=== PATIENT | female | born 1980 ===

== ENCOUNTER → 2019-09-27 | Day surgery (SDC) | payer OTHER ==
[~2019-09-27] MED LIST: LIDOCAINE 1% INJ 20 ML 20 ML VIAL INJ ONE
--- NOTE | 2019-09-27 13:57 | Diagnostic Imaging Report ---
INDICATION: Abnormal outside imaging from [facility] raising the question of inflammatory breast carcinoma. The patient underwent right breast biopsy. No malignancy was identified on biopsy. The patient presents for rebiopsy. COMPARISON: The patient's prior imaging is not available for comparison. Prior reports from diagnostic mammography, ultrasound, and MRI are available for comparison. FINDINGS: The patient reportedly had multifocal abnormalities on prior imaging in the medial and inferior right breast, raising the question of inflammatory breast carcinoma. There is a circumscribed hypoechoic nodule at the 6:30 location 1 cm from the nipple measuring 15 mm x 9 mm. A second circumscribed nodule is seen at the 4 o'clock location 4 cm from the nipple measuring 7 mm x 5 mm x 12 mm. No posterior acoustic shadowing is seen. No abnormal vascularity is present. The findings may represent fibroadenomas. There does appear to be some ductal dilatation in the retroareolar right breast. A fatty lymph node in the right axilla is seen measuring approximately 2 cm. The overlying cortex is thin. No suspicious lymphadenopathy is seen. After discussion with the patient, the patient reports her symptoms have improved. She took approximately half a round of antibiotics and the skin redness previously described has significantly improved. Since no concerning findings are found sonographically, the biopsy procedure was canceled. After discussion with the patient and the patient's physician Dr. Zambrano, we decided the patient should finish her round of antibiotics and return to our Department in 6 weeks for additional followup right breast ultrasound to confirm stability and/or resolution of the findings. The patient should return if any new or concerning findings occur with her breast. IMPRESSION: No concerning findings in the right breast are identified; therefore, the biopsy was canceled. There are two circumscribed nodules, as described at the 6:30 and 4 o'clock locations, which may represent fibroadenomas. The patient will return in 6 weeks for additional followup. ACR BI-RADS Category 3: Probably benign findings. Dictated by: Dictated on workstation # [id number]
--- OUTSIDE RECORDS SUMMARY | 2019-10-20 00:13 | XMS REPORT ---
Author Author LOLA PIEDRA POS Organization [facility] SP Address [address] [place] [address] SP Care Team Providers Care Sourcing Coordinator Name Role Phone POS TADEOWILBERTAN Unavailable SP PROBLEMS Type Condition ICD9-CM Code [id number] Code Onset Dates Condition S tatus SNOMED POS Problem Anxiety F41.9 Active [id number] POS ALLERGIES No Known Allergies ENCOUNTERS Encounter Location Date Diagnosis POS [facility] [place] [address] [place] [address], [place] [address] 14 Aug, 9 Inflammatory SP of right breast C50.911 and Anxiety F41.9 [facility] [place] [address] [place] [phone] 09 Aug, 9 Inflammatory SP of right breast C50.911 [facility] [place] [address] [place] [phone] 07 Aug, 9 Breast mass, right SPN63.10 and Nipple discharge, bloody N64.52 [facility] [place] [address] [place] [address] 19 Aug, 9 Breast mass, right SPN63.10 and Nipple discharge, bloody N64.52 [facility] [address] [place] [address] 16 S ep, 2018 Breast SP right N63.10 [facility] [address] [place] [address] 03 Sep, 2018 SP mass, right N63.10 [facility] [place] [address] [place] [phone] 15 Jul, 9 Breast mass, right SPN63.10 and Encounter for breast cancer screening other than mammogram Z12.39 IMMUNIZATIONS No Known Immunizations SOCIAL HISTORY Never Assessed REASON FOR VISIT Patient here for breast bx results PLAN OF CARE Activity Details POS SP Follow Up prn Reason: SP VITAL SIGNS Temperature 98.2 degrees Fahrenheit 2019-09-13 POS Heart Rate 97 /min 2019-09-13 POS BMI 23.77 kg/m2 2019-09-13 POS Height 5'2" in 2019-09-13 POS Respiratory Rate 19 /min 2019-09-13 POS Oximetry 97 % 2019-09-13 POS Weight 130 lbs 2019-09-13 POS Blood pressure systolic 115 mm Hg 2019-09-13 POS Blood pressure diastolic 76 mm Hg 2019-09-13 POS MEDICATIONS Medication Instructions Dosage Frequency Start Date End Date Duration S tatus POS Tramadol HCl 50 MG Orally Once a day 1 tablet as needed 24h 14 O 2018 30 SP Active SP Ativan 0.5 MG Orally every 6 hrs 1 tablet as needed 6h 14 Aug, 2019 10 days SP RESULTS No Results PROCEDURES No Known procedures INSTRUCTIONS MEDICATIONS ADMINISTERED No Known Medications MEDICAL (GENERAL) HISTORY Type Description Date POS Surgical History No Surgical history information SP Hospitalization History No Hospitalization history informati on SP
--- OUTSIDE RECORDS SUMMARY | 2019-10-20 00:13 | XMS REPORT | Continuity of Care Document ---
Author Organization Unknown POS Address Unknown SP Phone Unavailable SP Allergies Active Description Code Type Severity POS Reaction Onset Reported/Identified POS to Patient Clinical Status POS Yes No Known Drug Allergies [id number] Drug SP Unknown N/A 09/27/2019 SP SP Medications There is no data. Problems There is no data. Procedures There is no data. Results There is no data. Encounters ACCT No. Visit Date/Time Discharge Status POS Pt. Type Provider Facility Loc./Un it POS Complaint POS [id number] 08/19/2019 11:40:00 08/19/2019 23:59:5 9 CLS SP Outpatient Taty Goel [facility] SP SP [id number] 09/27/2019 11:26:00 23:59:59 SP CLS Outpatient MARIA ISABEL BRAR V [facility] RAD BREAST MASS,AXILLARY LUMP [id number] 09/24/2019 08:51:00 23:59:59 SP CLS Outpatient MARIA ISABEL BRAR V [facility] ONC SP [id number] 11/01/2019 09:15:00 P EN SP MARIA ISABEL BRAR Via [facility] SP RAD MASS OF RT BREAST SP
--- OUTSIDE RECORDS SUMMARY | 2019-10-20 00:13 | XMS REPORT ---
Author Author LOLA PIEDRA POS Organization [facility] SP Address [address] [place] [address] SP Care Team Providers Care Compliance Mgr Name Role Phone POS LOLA PIEDRA Unavailable SP PROBLEMS Unknown Problems ALLERGIES No Information ENCOUNTERS Encounter Location Date Diagnosis POS [facility] [place] [address] [place] [address] 19 Aug, 201 9 Breast mass, right SPN63.10 and Nipple discharge, bloody N64.[address] [facility] [address] [place] [address] 16 S ep, 2018 Breast SP right N63.10 [facility] [address] [place] [address] 03 Sep2018 SP mass, right N63.10 [facility] [place] [address] [place] [address] 15 Jul, 201 9 Breast mass, right SPN63.10 and Encounter for breast cancer screening other than mammogram Z12.39 IMMUNIZATIONS No Known Immunizations SOCIAL HISTORY Never Assessed REASON FOR VISIT MRI of Breast PLAN OF CARE VITAL SIGNS MEDICATIONS No Known Medications RESULTS No Results PROCEDURES No Known procedures INSTRUCTIONS MEDICATIONS ADMINISTERED No Known Medications MEDICAL (GENERAL) HISTORY Type Description Date POS Surgical History No know Surgical history SP Hospitalization History No know Hospitalization history SP
--- OUTSIDE RECORDS SUMMARY | 2019-10-20 00:13 | XMS REPORT ---
Author Author FROILAN YORK POS Organization [facility] SP Address [address] [place] [address] SP Care Team Providers Care Car Dealer Name Role Phone POS FROILAN YORK Unavailable SP PROBLEMS Unknown Problems ALLERGIES No Known Allergies ENCOUNTERS Encounter Location Date Diagnosis POS [facility] [place] [address] [place] [address] Jul, 9 Breast mass, right SPN63.10 and Encounter for breast cancer screening other than mammogram Z12.39 IMMUNIZATIONS No Known Immunizations SOCIAL HISTORY Never Assessed REASON FOR VISIT Approved by EDW for CBE and pap. For mammogram only if diagnostic., Pt states t hat last pap was done in March at [facility], Room 1 [facility] PLAN OF CARE Activity Details POS SP Follow Up 1 mo or sooner as needed Tisha son:f/u results SP Pending Test Ultrasound : Breast, right SP Pending Test Mammogram (Bilateral), Diagn ostic computer aided (without SP SP VITAL SIGNS Temperature 98.8 degrees Fahrenheit 2019-07-15 POS Heart Rate 90 /min 2019-07-15 POS BMI 24.43 kg/m2 2019-07-15 POS Height 5'2" in 2019-07-15 POS Respiratory Rate 20 /min 2019-07-15 POS Oximetry 98 % 2019-07-15 POS Weight 133.6 lbs 2019-07-15 POS Blood pressure systolic 120 mm Hg 2019-07-15 POS Blood pressure diastolic 83 mm Hg 2019-07-15 POS MEDICATIONS No Known Medications RESULTS No Results PROCEDURES No Known procedures INSTRUCTIONS MEDICATIONS ADMINISTERED No Known Medications MEDICAL (GENERAL) HISTORY Type Description Date POS Medical History pre diabetes SP
--- OUTSIDE RECORDS SUMMARY | 2019-10-20 00:13 | XMS REPORT ---
Author Author JAYLEN FROILAN POS Organization [facility] SP Address [address] [place] [address] SP Care Team Providers Care Music Professionals Name Role Phone POS FROILAN YORK Unavailable SP PROBLEMS Unknown Problems ALLERGIES No Information ENCOUNTERS Encounter Location Date Diagnosis POS [facility] [address] [facility] [address] Aug, SP mass, right N63.10 [facility] [place] [address] [place] [address] 15 Jul, 201 9 Breast mass, right SPN63.10 and Encounter for breast cancer screening other than mammogram Z12.39 IMMUNIZATIONS No Known Immunizations SOCIAL HISTORY Never Assessed REASON FOR VISIT Results PLAN OF CARE Activity Details POS SP Pending Test MRI : Breast, Right SP SP VITAL SIGNS MEDICATIONS Unknown Medications RESULTS No Results PROCEDURES No Known procedures INSTRUCTIONS MEDICATIONS ADMINISTERED No Known Medications MEDICAL (GENERAL) HISTORY Type Description Date POS Medical History pre diabetes SP
--- OUTSIDE RECORDS SUMMARY | 2019-10-20 00:13 | XMS REPORT ---
Author Author LOLA PIEDRA POS Organization [facility] SP Address [address] [place] [address] SP Care Team Providers Care Poultry Husbandry Worker Name Role Phone POS LOLA PIEDRA Unavailable SP PROBLEMS Unknown Problems ALLERGIES No Known Allergies ENCOUNTERS Encounter Location Date Diagnosis POS [facility] [place] [address] [place] [address] 19 Aug, 9 Breast mass, right SPN63.10 and Nipple discharge, bloody N64.52 [facility] [address] [place] [address] 16 S 2018 Breast SP right N63.10 [facility] [address] [place] [address] 03 Aug, 2019 SP mass, right N63.10 [facility] [address] [place] [phone] 15 Jul, 9 Breast mass, right SPN63.10 and Encounter for breast cancer screening other than mammogram Z12.39 IMMUNIZATIONS No Known Immunizations SOCIAL HISTORY Never Assessed REASON FOR VISIT Patient here to discuss recent mammo results,pt reports she was seen in ER on d/t nipple discharge on Right breast and was told to f/u with PCP for fur ther imagining PLAN OF CARE Activity Details POS SP Follow Up prn Reason: SP Future/Pending Procedure Skin Biopsy SP SP VITAL SIGNS Temperature 98.2 degrees Fahrenheit 2019-08-19 POS Heart Rate 75 /min 2019-08-19 POS BMI 24.51 kg/m2 2019-08-19 POS Height 5'2" in 2019-08-19 POS Respiratory Rate 20 /min 2019-08-19 POS Oximetry 99 % 2019-08-19 POS Weight 134 lbs 2019-08-19 POS Blood pressure systolic 122 mm Hg 2019-08-19 POS Blood pressure diastolic 82 mm Hg 2019-08-19 POS MEDICATIONS No Known Medications RESULTS No Results PROCEDURES No Known procedures INSTRUCTIONS MEDICATIONS ADMINISTERED No Known Medications MEDICAL (GENERAL) HISTORY Type Description Date POS Surgical History No know Surgical history SP Hospitalization History No know Hospitalization history SP
--- OUTSIDE RECORDS SUMMARY | 2019-10-20 00:13 | XMS REPORT ---
Author Author LOLA PIEDRA POS Organization [facility] [place] SP Address [address] [place] [address] SP Care Team Providers Care Construction Tech Name Role Phone POS LAKEWILBERT WayAN Unavailable SP PROBLEMS Unknown Problems ALLERGIES No Information ENCOUNTERS Encounter Location Date Diagnosis POS [facility] [place] [address] [place] [address] 11 Aug, 9 SP [facility] [place] [address] [place] [address], [place] [address] 09 Aug, 9 Inflammatory SP of right breast C50.911 [facility] [place] [address] [place] [address], [place] [address] 07 Aug, 9 Breast mass, right SPN63.10 and Nipple discharge, bloody N64.52 [facility] [place] [address] [place] [address], [place] [address] 19 Aug, 9 Breast mass, right SPN63.10 and Nipple discharge, bloody N64.52 [facility] [address] [place] [address] 16 S ep, 2018 Breast SP right N63.10 [facility] [address] [place] [address] 03 Aug, 2019 SP mass, right N63.10 [facility] [place] [address] [place] [address] 15 Jul, 9 Breast mass, right SPN63.10 and Encounter for breast cancer screening other than mammogram Z12.39 IMMUNIZATIONS No Known Immunizations SOCIAL HISTORY Never Assessed REASON FOR VISIT Needs referral PLAN OF CARE VITAL SIGNS MEDICATIONS Unknown Medications RESULTS No Results PROCEDURES No Known procedures INSTRUCTIONS MEDICATIONS ADMINISTERED No Known Medications MEDICAL (GENERAL) HISTORY Type Description Date POS Medical History pre diabetes SP Surgical History No know Surgical history SP Hospitalization History No know Hospitalization history SP
== END | disposition home or self-care (01) ==
LOC: RAD 11:26
PROVIDERS: ATTEND Internal Medicine Hematology & Oncology
DX: N63.13 Unspecified lump in the right breast, lower outer quadrant (principal); N63.14 Unspecified lump in the right breast, lower inner quadrant
CPT/HCPCS: 76641

== ENCOUNTER 2019-11-01 10:25 | Outpatient (RCR) | payer OTHER ==
[2019-09-24 11:08] LABS: BASOPHILS % (AUTO) 0 % (0-10); EOSINOPHILS # (AUTO) 0.1 10^3/uL (0.0-0.3); EOSINOPHILS % (AUTO) 2 % (0-10); HEMATOCRIT 38 % (35-52); HEMOGLOBIN 12.7 G/DL (11.5-16.0); LYMPHOCYTES # (AUTO) 1.5 X 10^3 (1.0-4.0); LYMPHOCYTES % (AUTO) 24 % (12-44); MEAN CORPUSCULAR HEMOGLOBIN 29 PG (25-34); MEAN CORPUSCULAR HGB CONC 33 G/DL (32-36); MEAN CORPUSCULAR VOLUME 85 FL (80-99); MONOCYTES # (AUTO) 0.4 X 10^3 (0.0-1.0); MONOCYTES % (AUTO) 7 % (0-12); NEUTROPHILS # (AUTO) 4.3 X 10^3 (1.8-7.8); NEUTROPHILS % (AUTO) 68 % (42-75); PLATELET COUNT 304 10^3/uL (130-400); RED CELL DISTRIBUTION WIDTH 13.2 % (10.0-14.5); WHITE BLOOD COUNT 6.4 10^3/uL (4.3-11.0)
[2019-09-24 11:33] LABS: ALANINE AMINOTRANSFERASE 36 U/L (0-55); ALBUMIN 4.3 GM/DL (3.2-4.5); ALKALINE PHOSPHATASE 139 U/L (40-136); BILIRUBIN,TOTAL 0.3 MG/DL (0.1-1.0); BUN/CREATININE RATIO 15; CALCIUM 9.3 MG/DL (8.5-10.1); CARBON DIOXIDE 26 MMOL/L (21-32); CHLORIDE 106 MMOL/L (98-107); CREATININE SERUM 0.68 MG/DL (0.60-1.30); GFR ESTIMATED > 60; GLUCOSE 115 MG/DL (70-105); POTASSIUM 3.9 MMOL/L (3.6-5.0); SODIUM 140 MMOL/L (135-145); TOTAL PROTEIN 7.2 GM/DL (6.4-8.2)
[~2019-11-01 10:25] MED LIST changes: -LIDOCAINE 1% INJ 20 ML 20 ML VIAL INJ ONE; +LIDOCAINE 1% INJ 20 ML 20 ML VIAL ONE
== END 2019-12-23 | disposition home or self-care (01) ==
LOC: ONC 10:25
PROVIDERS: ATTEND Internal Medicine Hematology & Oncology
DX: N63.10 Unspecified lump in the right breast, unspecified quadrant (principal)
CPT/HCPCS: 36415; 80053; 85025; 99213; 99214

== ENCOUNTER → 2019-11-01 | Outpatient (CLI) | payer OTHER ==
--- NOTE | 2019-11-01 10:54 | Diagnostic Imaging Report ---
INDICATION: Six-week followup of right breast abnormalities. COMPARISON: Correlation is made with the prior right breast ultrasound from 09/27/2019. FINDINGS: There continues to be somewhat ill-defined hypoechogenicity in the retroareolar right breast with some vascularity. There is a linear echogenicity at this location, likely representing a biopsy clip. The patient did have prior biopsy with no malignancy found. There is some persistent ductal dilatation. The circumscribed hypoechoic nodule at the 4 o'clock location of the right breast 4 cm from the nipple is again noted. This measures 10 mm x 6 mm x 5 mm compared with 12 mm x 8 mm x 5 mm on the prior exam. A hypoechoic nodule at the 6:30 location of the right breast 1 cm from the nipple has decreased in size now measuring 11 mm x 6 mm x 8 mm compared with 15 mm x 9 mm x 13 mm previously. No new abnormality is identified. IMPRESSION: There is decreased size of the hypoechoic nodule at the 6:30 location of the right breast 1 cm from the nipple. The nodule at the 4 o'clock location is stable. There continues to be ill-defined hypoechogenicity and some ductal dilatation in the retroareolar right breast at the site of prior biopsy. After discussion with the patient, it was noted that the patient only took 2 days worth of antibiotics following the prior ultrasound on 09/27/2019. The patient will begin a new course of antibiotics today and the patient has been instructed to take the entire course. A repeat right breast ultrasound in 4 weeks is recommended to confirm stability or improvement. If there are any concerning findings on the repeat ultrasound in 4 weeks, the patient will undergo a right breast biopsy on that day. ACR BI-RADS Category 3: Probably benign findings. Dictated by: Dictated on workstation # [id number]
== END ==
LOC: RAD 09:20
PROVIDERS: ATTEND Internal Medicine Hematology & Oncology
DX: N63.13 Unspecified lump in the right breast, lower outer quadrant (principal); N63.12 Unspecified lump in the right breast, upper inner quadrant; R22.31 Localized swelling, mass and lump, right upper limb

== ENCOUNTER → 2019-11-29 | Outpatient (CLI) | payer OTHER ==
[~2019-11-29] MED LIST changes: +LIDOCAINE 1% INJ 20 ML 20 ML VIAL INJ ONE; -LIDOCAINE 1% INJ 20 ML 20 ML VIAL ONE
--- NOTE | 2019-11-29 13:23 | Diagnostic Imaging Report ---
INDICATION: One-month follow-up of right breast nodules. Correlation is made with prior right breast ultrasound from 11/01/2019. Patient has now completed a focal round of antibiotics. The hypoechoic fairly well-circumscribed nodule at 6:30 location of the right breast one cm from the nipple measures 9 mm x 5 mm x 8 mm compared with 11 mm x 6 mm x 8 mm on prior. This appears to contain a biopsy clip. The hypoechoic circumscribed nodule 4:00 location 4 cm from the nipple measures 8 mm x 7 mm x 4 mm compared with 9 mm x 6 mm x 5 mm. The area of hypoechogenicity in the retroareolar aspect of the right breast with associated marker clip appears to be improved significantly since prior. IMPRESSION: Stable to improving appearance of the right breast when compared with examination from one month earlier. This is reassuring. Even so, follow-up right breast ultrasound in 3 months is recommended to show continued stability. BI-RADS Category 3 ACR BI-RADS Category 3: Probably benign findings. Dictated by: Dictated on workstation # [id number]
== END ==
LOC: RAD 10:49
PROVIDERS: ATTEND Internal Medicine Hematology & Oncology
DX: N63.10 Unspecified lump in the right breast, unspecified quadrant (principal)

== ENCOUNTER → 2020-05-12 | Outpatient (CLI) | payer SELFPAY | LOC: EDSTATUS 12-24 10:09 → ONC 11:32 | PROVIDERS: ATTEND Internal Medicine Hematology & Oncology | DX: N63.20 Unspecified lump in the left breast, unspecified quadrant (principal); N91.2 Amenorrhea, unspecified | CPT/HCPCS: 99213 ==

== ENCOUNTER → 2020-05-12 | Outpatient (CLI) | payer SELFPAY ==
--- NOTE | 2020-05-13 07:23 | Diagnostic Imaging Report ---
INDICATION: Six-month follow-up right breast nodules. CORRELATION is made with prior right breast ultrasound from 11/29/2019. Sonographic interrogation of the retroareolar region was performed. No suspicious abnormality is identified. Hypoechoic nodule at the 4:00 location 4 cm from the nipple measures 5 mm x 5 mm x 3 mm. This measured approximately 7 mm x 4 mm x 8 mm on prior exam. The region of hypoechogenicity at the 6:00 and 6:30 location in the right breast is no longer visualized. IMPRESSION: BI-RADS Category 3. Continued improved appearance to the right breast. Lesions near the 6:00 location as well as retroareolar location are no longer visualized. There is a small hypoechoic nodule at the 4:00 location. Follow-up in 6 months could be performed to show continued stability and improvement. ACR BI-RADS Category 3: Probably benign findings. Result letter will be mailed to the patient. Note: At least 10% of breast cancer is not imaged by mammography. Dictated by: Dictated on workstation # [id number]
== END ==
LOC: RAD 09:53
PROVIDERS: ATTEND Internal Medicine Hematology & Oncology
DX: N63.10 Unspecified lump in the right breast, unspecified quadrant (principal)

== ENCOUNTER → 2021-02-12 | Outpatient (CLI) | payer OTHER | LOC: ONC 13:09 | PROVIDERS: ATTEND Internal Medicine Hematology & Oncology | DX: N63.10 Unspecified lump in the right breast, unspecified quadrant (principal); Z79.2 Long term (current) use of antibiotics | CPT/HCPCS: 99213 ==

== ENCOUNTER → 2021-02-12 | Outpatient (CLI) | payer OTHER ==
--- NOTE | 2021-02-12 15:34 | Diagnostic Imaging Report ---
INDICATION: Follow-up left breast mass. CORRELATION is made with breast ultrasound from 05/12/2020. Sonographic interrogation of the retroareolar right breast was performed. There is some ductal dilatation. No solid or cystic mass is identified on today's study. A nodule previously noted in the right breast is no longer visualized. IMPRESSION: BI-RADS Category 2 There is ductal dilatation in the retroareolar right breast. No solid or cystic mass is detected. The patient may return to routine annual screening mammography. ACR BI-RADS Category 2: Benign findings. Result letter will be mailed to the patient. Note: At least 10% of breast cancer is not imaged by mammography. Dictated by: Dictated on workstation # [id number]
== END ==
LOC: RAD 10:23
PROVIDERS: ATTEND Internal Medicine Hematology & Oncology
DX: N63.20 Unspecified lump in the left breast, unspecified quadrant (principal)